=== PATIENT | female | born 2005 | race Caucasian/White ===

== ENCOUNTER 2025-10-31 12:00 | Outpatient (CLI) | payer OTHER, SELFPAY ==
[2025-10-31 15:27] LABS: Beta HCG Quantitative < 2.39 mIU/ML
== END 2025-10-31 12:01 | disposition home or self-care (01) ==
PROVIDERS: Visit Provider Student in an Organized Health Care Education/Training Program
DX: Z30.49 Encounter for surveillance of other contraceptives (principal)
CPT/HCPCS: 36415; 84702